=== PATIENT | female | born 1955 | race Caucasian/White ===

== ENCOUNTER → 2023-07-10 13:24 | Outpatient (REF) | payer MEDICARE, SELFPAY | LOC: HWRAD 13:24 | PROVIDERS: ATTENDING PHYSICIAN Student in an Organized Health Care Education/Training Program | DX: Z87.891 Personal history of nicotine dependence (principal) | CPT/HCPCS: 71271 ==

== ENCOUNTER → 2023-09-19 09:39 | Outpatient (REF) | payer MEDICARE, SELFPAY | LOC: HWRAD 09:39 | PROVIDERS: ATTENDING PHYSICIAN Student in an Organized Health Care Education/Training Program | DX: S32.020A Wedge compression fracture of second lumbar vertebra, initial encounter for closed fracture (principal) | CPT/HCPCS: 77080 ==

== ENCOUNTER → 2024-01-26 12:38 | Outpatient (REF) | payer MEDICARE, SELFPAY | LOC: RAD 12:38 | PROVIDERS: ATTENDING PHYSICIAN Surgery Vascular Surgery; FAMILY PHYSICIAN Family Medicine | DX: R09.89 Other specified symptoms and signs involving the circulatory and respiratory systems (principal) | CPT/HCPCS: 93880 ==

== ENCOUNTER → 2024-02-03 08:14 | Outpatient (REF) | payer MEDICARE, SELFPAY | LOC: DHVS 08:14 | PROVIDERS: ATTENDING PHYSICIAN Surgery Vascular Surgery | DX: K55.1 Chronic vascular disorders of intestine (principal) | CPT/HCPCS: 93975 ==

== ENCOUNTER → 2024-07-15 13:46 | Outpatient (REF) | payer MEDICARE, SELFPAY | LOC: HWRAD 13:46 | PROVIDERS: ATTENDING PHYSICIAN Student in an Organized Health Care Education/Training Program | DX: Z87.891 Personal history of nicotine dependence (principal) | CPT/HCPCS: 71271 ==

== ENCOUNTER → 2025-01-31 07:48 | Outpatient (REF) | payer MEDICARE, SELFPAY | LOC: DHVS 07:48 | PROVIDERS: ATTENDING PHYSICIAN Surgery Vascular Surgery | DX: K55.1 Chronic vascular disorders of intestine (principal); R09.89 Other specified symptoms and signs involving the circulatory and respiratory systems | CPT/HCPCS: 93880; 93975 ==